=== PATIENT | male | born 1990 | race African-American/Black ===

== ENCOUNTER 2025-05-23 14:56 | Emergency (ER) | payer OTHER ==
[2025-05-23 15:17] VITALS: BP 120/68; PULSE 62; RESP 16; TEMP 98.3; BMI 29.9
[2025-05-23] MEDS ORDERED: LIDOCAINE 4% PATCH TP ONE (16:47)
[2025-05-23] MEDS ORDERED: KETOROLAC TROMETHAMINE 15 MG/ML VIAL ONE (16:47)
[2025-05-23] MEDS ORDERED: ACETAMINOPHEN 325 MG TABLET (FP) ONE (16:48)
[2025-05-23] MEDS: LIDOCAINE 4% PATCH TP ONE (16:57)
[2025-05-23] MEDS: ACETAMINOPHEN 325 MG TABLET (FP) PO ONE (16:57)
[2025-05-23] MEDS: KETOROLAC TROMETHAMINE 15 MG/ML VIAL IM ONE (16:57)
[2025-05-23] MEDS ORDERED: LIDOCAINE PATCH REMOVAL MC SCH (22:00)
== END 2025-05-23 17:32 | disposition home or self-care (01) ==
LOC: JERFT 14:56
PROC: 3E0233Z Introduction of Anti-inflammatory into Muscle, Percutaneous Approach (ICD-10-PCS; principal; 2025-05-23)
DX: M54.50 Low back pain, unspecified (principal); M25.561 Pain in right knee
CPT/HCPCS: 99284-25